=== PATIENT | female | born 1970 | race Caucasian/White ===

== ENCOUNTER 2017-05-21 22:41 | Emergency (ER) | payer BC, OTHER ==
[2017-05-21 22:49] VITALS: BP 128/80; PULSE 80; TEMP 99.4; BMI 28.2
[2017-05-21] MEDS ORDERED: OSELTAMIVIR PHOSPHATE 75 MG CAPSULE PO ONE (23:02)
[2017-05-21] MEDS ORDERED: OSELTAMIVIR PHOSPHATE 75 MG CAPSULE ONE (23:02)
--- NOTE | 2017-05-21 23:02 | PDOC ---
History of Present Illness - General Chief Complaint: Cold Symptoms Stated Complaint: FEVER, COUGH, HEADACHE Time Seen by Provider: 05/21/17 22:56 History Source: Patient Exam Limitations: No Limitations - History of Present Illness Initial Comments: 05/21/17 23:01 This is a 46-year-old female who comes in complaining of 2 days of headache, body ache, cough, congestion, fever, chills. Patient did not get her flu shot this year. Patient otherwise is healthy. PAST MEDICAL HISTORY: no significant history PAST SURGICAL HISTORY: no significant history FAMILY HISTORY: no pertinant history SOCIAL HISTORY: Pt lives with family and is employed. MEDICATIONS: reviewed ALLERGIES: As per nursing notes Review of Systems General: +fevers or + chills, no weakness, no weight loss HEENT: No change in vision. No sore throat,. No ear pain CardioVascular: + pleuritic chest pain or no shortness of breath Respiratory:+ cough, no wheezing. Gastrointestinal: no nausea, vomitting, diarrhea or constipation, No rectal bleeding Genitourinary: No dysuria, hematuria, or frequency Musculoskeletal: No joint or muscle pain or swelling Neurologic: No headache, vertigo, dizziness or loss of consciousness Psychiatric: nor depression Skin: No rashes or easy bruising Endocrine: no increased thirst or abnormal weight change Allergic: no skin or latex allergy All other systems reviewed and normal Exam: General: Well-nourished well-developed individual, no acute distress HEENT: Throat: Normal, tonsils normal, no erythema or exudate Neck: Supple, no meningeal signs, no lymphadenopathy Eyes::Pupils equal reactive and round, extraocular motion intact Chest: Nontender to palpation Cardiac: S1-S2 normal, regular rate and rhythm, no murmurs rubs or gallops Respiratory: Lungs clear to auscultation bilateral Abdomen: Soft, nondistended, normal bowel sounds, nontender to palpation diffusely Extremities: Warm, dry, no cyanosis, clubbing, or edema Skin: No rashes Neuro: Alert and oriented x3, CN II - XII intact, nonfocal exam with normal strength, normal sensation, normal reflexes, normal gait, Psych: Normal mood and affect Assessment and plan: This is a 46-year-old female who did not get her flu shot and now has symptoms consistent with the flu. Patient was reassured that symptoms will run their course. Patient was told to alternate Tylenol with Motrin and stay home, rest get plenty of fluids. Past History - Past Medical History Allergies/Adverse Reactions: Allergies Allergy/AdvReac Type Severity Reaction Status Date / Time No Known Allergies Allergy Verified 01/08/12 08:42 Home Medications: Ambulatory Orders Estrogen,Gloria/Me-Testosterone [Covaryx H.s. Tablet] 1 each PO DAILY 05/21/17 Oseltamivir Phosphate [Tamiflu -] 75 mg PO BID #10 capsule 05/21/17 Anemia: Yes (STOPPED IRON SUPPLEMNTS 02/2012) Asthma: No Cancer: No Cardiac Disorders: No CVA: No COPD: No CHF: No Dementia: No Diabetes: No (HX HYPOGLCEMIA-STABLE NOW) GI Disorders: Yes (GASTRITIS) Disorders: No HTN: No Hypercholesterolemia: No Liver Disease: No Seizures: No Thyroid Disease: No - Surgical History Abdominal Surgery: No Appendectomy: Yes (AT AGE 15) Cardiac Surgery: No Cholecystectomy: No Lung Surgery: No Neurologic Surgery: No Orthopedic Surgery: No - Suicide/Smoking/Psychosocial Hx Smoking History: Never smoked Have you smoked in the past 12 months: No Hx Alcohol Use: Yes (OCCASIONAL) Drug/Substance Use Hx: No Substance Use Type: Alcohol Hx Substance Use Treatment: No *Physical Exam - Vital Signs Last Vital Signs Temp Pulse Resp BP Pulse Ox 99.4 F 80 16 128/80 100 05/21/17 22:47 05/21/17 22:47 05/21/17 22:47 05/21/17 22:47 05/21/17 22:47 *DC/Admit/Observation/Transfer Diagnosis at time of Disposition: Influenza-like illness - Discharge Dispostion Disposition: HOME Condition at time of disposition: Stable Admit: No - Referrals Referrals: Vinnie Rausch [Primary Care Provider] - - Patient Instructions Printed Discharge Instructions: Influenza Additional Instructions: You can continue to take the Tylenol or Motrin for fevers. Take Tamiflu one tablet twice a day for 5 days. Return to the emergency department immediately with ANY new, persistent or worsening symptoms. Continue any medications as previously prescribed by your physician. You should follow up with your primary doctor as soon as possible regarding today's emergency department visit. . Please make sure your doctor reviews the results of your emergency evaluation. Thank you for coming to the Emergency Department today for your care. It was a pleasure to see you today. Please note that your evaluation is INCOMPLETE until you follow-up with your doctor. - Post Discharge Activity
== END 2017-05-21 23:15 | disposition home or self-care (01) ==
LOC: FER 22:41
DX: J11.1 Influenza due to unidentified influenza virus with other respiratory manifestations (principal); K29.70 Gastritis, unspecified, without bleeding
CPT/HCPCS: 99281-25

== ENCOUNTER 2019-05-26 21:59 | Emergency (ER) | payer BC ==
[2019-05-26 22:15] VITALS: BMI 27.2
[2019-05-26] MEDS ORDERED: KETOROLAC TROMETHAMINE 30 MG/1 ML VIAL IVPUSH ONE (22:25)
[2019-05-26] MEDS ORDERED: morphine CARPU-JECT 4 MG/1 ML DISP.SYRIN IVPUSH ONE (22:25)
[2019-05-26] MEDS ORDERED: KETOROLAC TROMETHAMINE 30 MG/1 ML VIAL ONE (22:35)
[2019-05-26] MEDS ORDERED: morphine SULFATE 4 MG/ML VIAL ONE (22:35)
[2019-05-26 22:50] LABS: BASO % 0.1 % (0-2.0); HEMATOCRIT 30.2 % (32.4-45.2); HEMOGLOBIN 10.1 GM/dl (10.7-15.3); LYMPH % 11.7 % (8-40); MCH 25.5 pg (25.7-33.7); MCHC 33.3 g/dl (32.0-36.0); MEAN CELL VOLUME 76.7 fl (80-96); MEAN PLT VOLUME 9.1 fl (7.5-11.1); MONO % 9.5 % (3.8-10.2); NEUT % 77.7 % (42.8-82.8); PLATELET COUNT 225 K/MM3 (134-434); RBC 3.94 M/mm3 (3.60-5.2); WHITE BLOOD COUNT 13.6 K/mm3 (4.0-10.8)
[2019-05-26] MEDS ORDERED: CEFTRIAXONE 1,000 MG in DEXTROSE 5%-WATER - 50 ML IVPB ONE (23:00)
--- NOTE | 2019-05-26 23:02 | PDOC ---
Documentation entered by Nargis Savage SCRIBE, acting as scribe for Nadege Sainz MD. Nadege Sainz MD: This documentation has been prepared by the Hussein ocrcoran Nirvannie, SCRIBE, under my direction and personally reviewed by me in its entirety. I confirm that the documentation accurately reflects all work, treatment, procedures, and medical decision making performed by me. History of Present Illness - General Chief Complaint: Respiratory Stated Complaint: FLU LIKE ILLNESS Time Seen by Provider: 05/26/19 22:04 History Source: Patient Exam Limitations: No Limitations - History of Present Illness Initial Comments: 05/26/19 22:40 HPI: The patient is a 48 year old female, with a significant past medical history of anemia, who presents to the emergency department with 3 days of subjective fevers, chills, left sided-facial pain. Patient describes her facial pain as initially onseting 3 days ago while on vacation in [place] with facial pain described as localized to the left frontal, left side of the face, left ear, and left neck. She notes associated pain with swallowing and generalized weakness, prompting her arrival to the ED. She denies recent chest pain or shortness of breath. She denies any difficulty tolerating secretions or cough. She denies any trauma to the face. She denies recent nausea, vomit, diarrhea or constipation. PAST MEDICAL HISTORY: Anemia PAST SURGICAL HISTORY: Appendectomy. FAMILY HISTORY: no pertinent history SOCIAL HISTORY: Pt lives with family and is employed. MEDICATIONS: reviewed ALLERGIES: As per nursing notes ROS: General: +fevers, chills, generalized weakness. no weight loss HEENT: +Left facial pain. +Left throat pain. No change in vision. CardioVascular: No chest pain or shortness of breath Respiratory:No cough, or wheezing. Gastrointestinal: no nausea, vomiting, diarrhea or constipation, No rectal bleeding Genitourinary: No dysuria, hematuria, or frequency Musculoskeletal: No joint or muscle pain or swelling Neurologic: +Headache. No vertigo, dizziness or loss of consciousness Psychiatric: nor depression Skin: No rashes or easy bruising Endocrine: no increased thirst or abnormal weight change Allergic: no skin or latex allergy All other systems reviewed and normal Physical Exam: General: Well-nourished well-developed individual, no acute distress +HEENT: Throat: Posterior pharynx has a moderate amount of swelling with enlargement of the tonsills and tenderness on palpation. No palpable collection. +Neck: +Submandibular lymphadenopathy. Tenderness on palpation to the left anterior cervical chain. Supple, no meningeal signs. Eyes::Pupils equal reactive and round, extraocular motion intact Chest: Nontender to palpation Cardiac: S1-S2 normal, regular rate and rhythm, no murmurs rubs or gallops Respiratory: Lungs clear to auscultation bilateral Abdomen: Soft, nondistended, normal bowel sounds, nontender to palpation diffusely Extremities: Warm, dry, no cyanosis, clubbing, or edema Skin: No rashes Neuro: Alert and oriented x3, nonfocal exam, grossly intact. Psych: Normal mood and affect 05/26/19 22:59 Assessment and plan: This is a 48-year-old female who comes in complaining of left sided posterior oropharynx and neck pain and discomfort worse with swallowing also some fevers and chills. On my exam patient did have swelling and tenderness to that area with concern for possible collection/abscess. Work-up initiated including CBC, comp. Patient given a dose of CT of soft tissues of the neck also scheduled to rule out collection. 05/27/19 00:41 CAT scan shows a large peritonsillar abscess. Patient needs to be transferred as our ENT does not come to the ED. I did contact ENT Dr. recio who said they do not cover the ED anymore. Patient will be transferred. Initially started arranging transfer to [facility] however patient was adamant that she did not want to go to [facility] and requested that she be transferred to [facility] instead. Patient was accepted for transfer to [facility] Dr. Whyte Past History - Past Medical History Allergies/Adverse Reactions: Allergies Allergy/AdvReac Type Severity Reaction Status Date / Time No Known Allergies Allergy Verified 01/08/12 08:42 Home Medications: Ambulatory Orders Clonazepam [Klonopin] 2 mg PO DAILY 05/26/19 Zolpidem Tartrate [Ambien] 5 mg PO HS 05/26/19 Anemia: Yes (STOPPED IRON SUPPLEMNTS 02/2012) Asthma: No Cancer: No Cardiac Disorders: No CVA: No COPD: No CHF: No Dementia: No Diabetes: No (HX HYPOGLCEMIA-STABLE NOW) GI Disorders: Yes (GASTRITIS) Disorders: No HTN: No Hypercholesterolemia: No Liver Disease: No Seizures: No Thyroid Disease: No - Surgical History Abdominal Surgery: No Appendectomy: Yes (AT AGE 15) Cardiac Surgery: No Cholecystectomy: No Lung Surgery: No Neurologic Surgery: No Orthopedic Surgery: No - Psycho Social/Smoking Cessation Hx Smoking History: Never smoked Have you smoked in the past 12 months: No Hx Alcohol Use: Yes (OCCASIONAL) Drug/Substance Use Hx: No Substance Use Type: Alcohol Hx Substance Use Treatment: No *Physical Exam - Vital Signs Last Vital Signs Temp Pulse Resp BP Pulse Ox 98.2 F 92 H 18 117/74 100 05/26/19 22:12 05/26/19 22:12 05/26/19 22:12 05/26/19 22:12 05/26/19 22:12 ED Treatment Course - LABORATORY CBC & Chemistry Diagram: 05/26/19 22:35 05/26/19 22:35 - ADDITIONAL ORDERS Additional order review: 05/26/19 22:35 RBC 3.94 MCV 76.7 L MCHC 33.3 RDW 14.0 D MPV 9.1 Neutrophils % 77.7 Lymphocytes % 11.7 Monocytes % 9.5 Eosinophils % 1.0 Basophils % 0.1 - RADIOLOGY Radiology Studies Ordered: Category Date Time Status SOFT TISSUE NECK CT WITH CONTR [CT] Stat CT Scan 05/26/19 22:23 Ordered - Medications Given in the ED: ED Medications Discontinued Medications Generic Name Dose Route Start Last Admin Trade Name Larsq PRN Reason Stop Dose Admin Ketorolac Tromethamine 30 mg 05/26/19 22:25 05/26/19 22:47 Toradol Injection - IVPUSH 05/26/19 22:26 30 mg ONCE ONE Administration Morphine Sulfate 4 mg 05/26/19 22:25 05/26/19 22:47 Morphine Injection - IVPUSH 05/26/19 22:26 4 mg ONCE ONE Administration Discharge - Discharge Information Problems reviewed: Yes Clinical Impression/Diagnosis: Peritonsillar abscess Condition: Good Disposition: TRANSFER ACUTE CARE/OTHER HOSP - Admission No - Follow up/Referral Referrals: Kris Dye [Primary Care Provider] - - Patient Discharge Instructions - Post Discharge Activity
[2019-05-26 23:12] LABS: ALBUMIN 3.1 g/dl (3.4-5.0); BILIRUBIN,TOTAL 0.3 mg/dl (0.2-1); CALCIUM 8.4 mg/dl (8.5-10); CREATININE 1.5 mg/dl (0.55-1.3); POTASSIUM 3.2 mmol/L (3.5-5.1); TOT PROT 6.2 g/dl (6.4-8.2)
[2019-05-26] MEDS ORDERED: cefTRIAXone SODIUM 1 GM VIAL ONE (23:14)
[2019-05-26] MEDS ORDERED: SODIUM CHLORIDE 1,000 ML IV ONE (23:24)
[2019-05-27] MEDS ORDERED: SODIUM CHLORIDE 1,000 ML IV ONE (00:09)
[2019-05-27 00:22] VITALS: BP 102/59; PULSE 80; TEMP 97.6
[2019-05-27] MEDS ORDERED: morphine CARPU-JECT 2 MG/1 ML DISP.SYRIN IVPUSH ONE (00:39)
[2019-05-27] MEDS ORDERED: morphine SULFATE 4 MG/ML VIAL ONE (00:41)
== END 2019-05-27 01:21 | disposition short-term general hospital (02) ==
LOC: FER 21:59
PROC: 3E03329 Introduction of Other Anti-infective into Peripheral Vein, Percutaneous Approach (ICD-10-PCS; principal; 2019-05-26)
PROC: 3E0333Z Introduction of Anti-inflammatory into Peripheral Vein, Percutaneous Approach (ICD-10-PCS; 2019-05-26)
PROC: 3E033NZ Introduction of Analgesics, Hypnotics, Sedatives into Peripheral Vein, Percutaneous Approach (ICD-10-PCS; 2019-05-26)
PROC: 3E0337Z Introduction of Electrolytic and Water Balance Substance into Peripheral Vein, Percutaneous Approach (ICD-10-PCS; 2019-05-26)
PROC: 3E033GC Introduction of Other Therapeutic Substance into Peripheral Vein, Percutaneous Approach (ICD-10-PCS; 2019-05-26)
DX: J36 Peritonsillar abscess (principal); D64.9 Anemia, unspecified
CPT/HCPCS: 36415; 70491-TC; 80053; 85025; 87040; 99285-25; J7030

== ENCOUNTER 2020-09-13 14:51 | Emergency (ER) | payer BC ==
[2020-09-13 14:58] VITALS: BP 115/78; PULSE 64; BMI 27.3
[2020-09-13] MEDS ORDERED: LACTATED RINGERS SOLUTION 1000 ML INFUS.BAG IV ONE (14:59)
[2020-09-13] MEDS ORDERED: SODIUM CHLORIDE 0.9% 1000 ML INFUS.BAG IV ONE (15:23)
[2020-09-13 15:34] LABS: BASO % 0.2 % (0-2.0); EOS % 2.2 % (0-4.5); HEMATOCRIT 36.8 % (32.4-45.2); HEMOGLOBIN 11.8 GM/dl (10.7-15.3); LYMPH % 35.2 % (8-40); MCH 24.4 pg (25.7-33.7); MEAN CELL VOLUME 76.2 fl (80-96); MONO % 7.3 % (3.8-10.2); NEUT % 55.1 % (42.8-82.8); PLATELET COUNT 279 K/MM3 (134-434); RBC 4.82 M/mm3 (3.60-5.2); RDW 14.7 % (11.6-15.6); WHITE BLOOD COUNT 5.9 K/mm3 (4.0-10.8)
[2020-09-13 15:48] LABS: ALBUMIN 4.2 g/dl (3.4-5.0); ALK PHOS 124 U/L (45-117); ANION GAP 9 MMOL/L (8-16); BILIRUBIN,TOTAL 0.5 mg/dl (0.2-1); CALCIUM 8.8 mg/dl (8.5-10); CHLORIDE 101 mmol/L (98-107); CO2 24 mmol/L (21-32); CREATININE 0.7 mg/dl (0.55-1.3); GLUCOSE,RANDOM 83 mg/dl (74-106); MAGNESIUM 2.2 mg/dL (1.8-2.4); SGOT/AST 29 U/L (15-37); SGPT/ALT 19 U/L (13-61); SODIUM 134 mmol/L (136-145); TOT PROT 7.3 g/dl (6.4-8.2)
[2020-09-13 15:49] VITALS: TEMP 98.3
== END 2020-09-13 17:44 | disposition home or self-care (01) ==
LOC: FER 14:51
DX: R53.83 Other fatigue (principal); R68.83 Chills (without fever)
CPT/HCPCS: 36415; 71045-TC-FY; 80053; 81003; 82550; 83735; 84443; 84484; 85025; 86850; 86900; 86901; 93005; 99284-25; C9803; U0003; U0005

== ENCOUNTER 2021-07-27 11:09 | Emergency (ER) | payer BC ==
[2021-07-27 11:23] VITALS: BP 153/56; PULSE 83; TEMP 98.9; BMI 28.1
[2021-07-27] MEDS ORDERED: DIPHTH,PERTUSS(ACELL),TET 0.5 ML DISP.SYRIN IM ONE ×2 (11:36→11:45)
== END 2021-07-27 12:25 | disposition home or self-care (01) ==
LOC: FER 11:09
PROC: 3E0234Z Introduction of Serum, Toxoid and Vaccine into Muscle, Percutaneous Approach (ICD-10-PCS; principal; 2021-07-27)
DX: S01.111A Laceration without foreign body of right eyelid and periocular area, initial encounter (principal); W22.8XXA Striking against or struck by other objects, initial encounter
CPT/HCPCS: 90715; 99282-25

== ENCOUNTER 2021-08-02 13:10 | Emergency (ER) | payer BC ==
[2021-08-02 13:18] VITALS: BP 114/66; PULSE 74; TEMP 98.4; BMI 27.9
== END 2021-08-02 13:34 | disposition home or self-care (01) ==
LOC: FER 13:10
DX: Z48.02 Encounter for removal of sutures (principal)
CPT/HCPCS: 99281-25

== ENCOUNTER 2021-08-21 07:03 | Day surgery (SDC) | payer BC ==
[2021-08-20 08:48] VITALS: BMI 28.1
[2021-08-21 07:24] VITALS: PULSE 70; TEMP 97
[2021-08-21] MEDS ORDERED: LIDOCAINE HCL/PF 2% SDV 5ML VIAL ONE (08:12)
[2021-08-21] MEDS ORDERED: MIDAZOLAM HCL 2 MG/2 ML SINGLE DOSE VIAL ONE (08:12)
[2021-08-21 09:34] VITALS: BP 107/62
== END 2021-08-21 09:34 | disposition home or self-care (01) ==
LOC: FASU-ENDO 07:03
PROVIDERS: ATTEND Internal Medicine Gastroenterology
PROC: 0DB98ZX Excision of Duodenum, Via Natural or Artificial Opening Endoscopic, Diagnostic (ICD-10-PCS; 2021-08-21)
PROC: 0DB68ZX Excision of Stomach, Via Natural or Artificial Opening Endoscopic, Diagnostic (ICD-10-PCS; 2021-08-21)
PROC: 0DBN8ZX Excision of Sigmoid Colon, Via Natural or Artificial Opening Endoscopic, Diagnostic (ICD-10-PCS; principal; 2021-08-21 08:24)
DX: Z12.11 Encounter for screening for malignant neoplasm of colon (principal); D12.7 Benign neoplasm of rectosigmoid junction; K29.50 Unspecified chronic gastritis without bleeding; K44.9 Diaphragmatic hernia without obstruction or gangrene; R10.32 Left lower quadrant pain; R12 Heartburn
CPT/HCPCS: 88305-TC; 88342-TC